=== PATIENT | female | born 1955 | race Caucasian/White ===

== ENCOUNTER 2021-04-23 10:39 | Emergency (ER) | payer SELFPAY ==
[2021-04-23 12:38] LABS: HEMOGLOBIN 15.8 gm/dl (12.3-15.3); WHITE BLOOD COUNT 9.1 K/UL (4.5-11.0)
[2021-04-23 13:45] LABS: BUN/CREATININE RATIO 14 (0-10)
== END 2021-04-23 16:18 | disposition home or self-care (01) ==
LOC: ER1 10:39
PROVIDERS: Physician Assistant
DX: R06.02 Shortness of breath (principal); Z90.89 Acquired absence of other organs
CPT/HCPCS: 71045; 80053; 82550; 82553; 83874; 84484; 85025; 93005; 99285